=== PATIENT | male | born 1950 | race Caucasian/White ===

== ENCOUNTER → 2017-09-13 08:17 | Outpatient (CLI) | payer MEDICARE, OTHER, SELFPAY ==
[2017-09-13 09:33] LABS: Hemoglobin A1C% w Est Avg Glu 7.7 % (4.0-6.0)
[2017-09-13 09:58] LABS: Alanine Aminotransferase 53 IU/L (21-72); Albumin 4.1 g/dL (3.5-5.0); Albumin Globulin Ratio 1.5 (1.0-2.8); Alkaline Phosphatase 55 U/L (38-126); Aspartate Aminotransferase 29 IU/L (17-59); Bilirubin Total 0.7 mg/dL (0.2-1.3); Calcium 9.2 mg/dL (8.4-10.2); Estimated Glomerular Filt Rate > 60.0 mL/min (>60); Globulin 2.8 g/dL (1.7-4.1); Glucose 170 mg/dL (80-110); HEMOLYSIS < 15 (0-50); Potassium 4.6 mmol/L (3.4-5.1); Sodium 144 mmol/L (137-145); Total Protein 6.9 g/dL (6.3-8.2)
[2017-09-13 11:32] LABS: Creatinine Urine Random 233.4 mg/dL
[2017-09-13 11:36] LABS: Microalbumi Creatinin Ratio Ur 27.4 ug/mg CR (<30); Microalbumin Urine Random 6.4 mg/dL (0-1.6)
== END ==
PROVIDERS: Family Provider Family Medicine; PCP Family Medicine; Visit Provider Family Medicine
DX: E87.5 Hyperkalemia (principal)
CPT/HCPCS: 36415; 80053; 82043; 82570; 83036

== ENCOUNTER → 2017-11-08 12:10 | Outpatient (CLI) | payer MEDICARE, OTHER, SELFPAY ==
[2017-11-08 13:30] LABS: Prostate Specific Antigen < 0.064 ng/mL (0.10-4.00)
== END ==
PROVIDERS: Family Provider Family Medicine; PCP Family Medicine; Visit Provider Radiology Radiation Oncology
DX: C61 Malignant neoplasm of prostate (principal)
CPT/HCPCS: 36415; 84153

== ENCOUNTER → 2017-12-25 09:38 | Outpatient (CLI) | payer MEDICARE, OTHER, SELFPAY ==
[2017-12-25 10:59] LABS: Alanine Aminotransferase 39 IU/L (21-72); Albumin Globulin Ratio 1.7 (1.0-2.8); Alkaline Phosphatase 51 U/L (38-126); Aspartate Aminotransferase 21 IU/L (17-59); BUN Creatinine Ratio 18.2 (6-22); Bilirubin Total 0.5 mg/dL (0.2-1.3); Blood Urea Nitrogen 20 mg/dL (9-20); Calcium 9.6 mg/dL (8.4-10.2); Carbon Dioxide 28 mmol/L (22-32); Chloride 103 mmol/L (98-107); Estimated Glomerular Filt Rate > 60.0 mL/min (>60); Globulin 2.4 g/dL (1.7-4.1); Glucose 228 mg/dL (80-110); HEMOLYSIS < 15 (0-50); Potassium 4.9 mmol/L (3.4-5.1); Sodium 141 mmol/L (137-145); Total Protein 6.4 g/dL (6.3-8.2)
[2017-12-25 11:03] LABS: Hemoglobin A1C% w Est Avg Glu 7.3 % (4.0-6.0)
[2017-12-25 11:32] LABS: Creatinine Urine Random 193.1 mg/dL
[2017-12-25 11:36] LABS: Microalbumi Creatinin Ratio Ur 20.1 ug/mg CR (<30); Microalbumin Urine Random 3.9 mg/dL (0-1.6)
== END ==
PROVIDERS: Family Provider Family Medicine; PCP Family Medicine; Visit Provider Family Medicine
DX: E11.9 Type 2 diabetes mellitus without complications (principal)
CPT/HCPCS: 36415; 80053; 82043; 82570; 83036

== ENCOUNTER → 2017-12-27 11:17 | Outpatient (CLI) | payer MEDICARE, OTHER, SELFPAY | PROVIDERS: Family Provider Family Medicine; PCP Family Medicine; Visit Provider Urology | DX: C61 Malignant neoplasm of prostate (principal) | CPT/HCPCS: 36415; 84402; 84403 ==

== ENCOUNTER 2018-03-20 07:52 | Day surgery (SDC) | payer MEDICARE, OTHER, SELFPAY ==
--- NOTE | 2018-03-20 | PATH_ITS ---
[facility] Accession Number: [id number] . 01 Material submitted: . PART A: COLON POLYPS AT 15CM X2 PART B: CECAL POLYPS X3 . 02 Diagnosis: A. Colon Polyps At 15 CM: Hyperplastic polyp x2. . B. Cecal Polyps: Tubular adenoma x2. Colonic mucosa with no diagnostic abnormality, consistent with polypoid redundancy x1. BFI/03/23/2018 . 02 Electronically signed: . Xiang Cao MD, PhD, Pathologist NPI- [id number] . 01 Gross description: . (A) Received in formalin, labeled colon polyps X2 @15 cm, are two fragments of mg-daigle tissue (0.5 x 0.1 x 0.1 cm and 0.2 x 0.2 x 0.1 cm). Filtered and entirely submitted in cassette A1. (B) Received in formalin, labeled cecal polyps x2, are three daigle polyps (0.9 x 0.4 x 0.3 cm in aggregate). The largest polyp resection margin is inked black. The largest polyp is bisected and entirely submitted in cassette B1 and the two smaller ones are submitted intact in cassette B2. Note: The number of polyps agree with the number of polyps listed on the requisition. ([id number]) /[facility] . 02 Pathologist provided ICD-10: D12.0 . 02 CPT . 148818, 153024 Specimen Comment: A duplicate report has been generated due to demographic updates. Performed at: 01 [facility] [address] [id number] MD Toi Alexander MD Phone: [phone] Performed at: 02 [facility] [place] [address] [place], [place] [id number] MD Maia Rawls MD Phone: [phone]
[2018-03-20 08:23] VITALS: BP 152/88; PULSE 78; RESP 15; TEMP 36.9; O2SAT 93; BMI 33.0
[2018-03-20] MEDS: SODIUM CHLORIDE 0.9% 1,000 ML 200 ML IV (08:37)
--- NOTE | 2018-03-20 09:15 | PM.HP.1 ---
History of Present Illness Date Patient Seen: 03/20/18 Time Patient Seen: 09:15 Chief complaint: colonoscopy 21305 Narrative: Patient is a gentleman whose last colonoscopy was 16 years ago. he is here for screening examination. Patient History Medical History Chronic back pain (Chronic) Elevated cholesterol (Chronic) Essential hypertension with goal blood pressure less than 130/85 (Chronic) Surgical History H/O partial nephrectomy (Chronic) H/O radical prostatectomy (Chronic) Family & Social History Social History: household members spouse Meds Home Medications Medication Instructions Recorded Confirmed Type Isosobride 30 mg DAILY 03/20/18 03/20/18 History Meformin 500 mg DAILY 03/20/18 History Paxil 10 mg PRN 03/20/18 History amlodipine 10 mg DAILY 03/20/18 03/20/18 History atorvastatin 40 mg DAILY 03/20/18 03/20/18 History gabapentin 300 mg DAILY 03/20/18 03/20/18 History hydrocodone-acetaminophen 10 mg PRN 03/20/18 History metoprolol tartrate 25 mg DAILY 03/20/18 03/20/18 History omeprazole 20 mg PRN 03/20/18 History tamsulosin 0.4 mg DAILY 03/20/18 03/20/18 History tizanidine 4 mg PRN 03/20/18 History Allergies Allergy/AdvReac Type Severity Reaction Status Date / Time No Known Drug Allergies Allergy Verified 03/19/18 13:23 Review of Systems Review of Systems Has intermittent chest pain. Has had extensive cardiac workup negative for coronary disease but takes long-acting nitrates which has relieved the pain. He has spontaneous urinary incontinence since his prostatectomy. History kidney stones. All systems reviewed & are unremarkable except as noted in HPI and below Exam Vital Signs (past 8 hours): - 03/20/18 08:23 Temperature 98.4 F Pulse Rate 78 Respiratory Rate 15 Blood Pressure 152/88 H Pulse Oximetry 93 Oxygen Delivery Method Room Air Const Other: Operative no apparent distress. Lungs are clear to auscultation without rales or rhonchi. Heart regular rate and rhythm without murmur gallop. Abdomen is soft nontender protuberant without mass. Alert and oriented x3. Assessment & Plan Plan: Assessment/Plan Narrative: I have discussed the procedure and the rationale with the patient including risks of bleeding, perforation which would necessitate a major operation, failure to find remove all lesions and the potential to tattoo. They appeared to understand and wished to proceed.
--- NOTE | 2018-03-20 09:21 | PM.PREOP ---
Pre-operative Note Interval Note Pre-op Check: Yes History & Physical exam performed today by Physician Changes: No ASA Class (for procedural sedation): III
[2018-03-20] MEDS: MIDAZOLAM 5 MG/5 ML VIAL IV (09:44)
[2018-03-20] MEDS: fentaNYL 250 MCG/5 ML INJ IV (09:45)
[2018-03-20 09:55] VITALS: BP 140/82; PULSE 74; RESP 10; TEMP 36.6; O2SAT 94
[2018-03-20 10:02] VITALS: BP 99/64; PULSE 81; RESP 19; O2SAT 94
--- NOTE | 2018-03-20 10:03 | SUR.PHASEI ---
stable pacu stay.
[2018-03-20 10:06] VITALS: BP 113/76; PULSE 78; RESP 15; TEMP 36.5; O2SAT 95
--- NOTE | 2018-03-20 10:06 | P.OP.ENDO_ITS ---
Operative Date/Time/Diagnoses Date of procedure: 03/20/18 Time of procedure: 09:51 Pre-op diagnosis: Screening exam. Last exam 16 years ago. Post-op diagnosis: same (Five polyps removed. Internal hemorrhoids found) Procedure & Clinicians Study performed: Colonoscopy with hot snare polypectomy, cold snare polypectomy , and cold biopsy Same procedure as scheduled: Yes Indications: Screening Surgeon: Sree Hernandez Procedure Notes SCOAP/Timeout: Perform Procedure in detail: The patient was placed in the left lateral decubitus position and underwent IV sedation directed by the surgeon consisting of fentanyl and Versed. Digital exam was remarkable for surgically absent prostate. The scope was inserted into the rectum where I encountered 2 small polyps at 15 cm from the anal verge. These were biopsied and completely removed. The scope was then advanced through the rectum into the sigmoid, descending, transverse, and ascending colon. A stiffener was inserted I reach the cecum.. The cecum was reached identified by the ileocecal valve and the appendiceal opening. There were 3 polyps in the cecum. One was removed with a hot snare. One was removed by slicing through it with a cold snare. The base of these 2 lesions were cauterized. The 3rd lesion was a tiny polyp which was biopsied to complete removal. The scope was gradually brought out. No other Polyps were found. The scope ultimately was retroflexed in the rectum. The appearance was[notable for internal hemorrhoids without ulceration.]. The scope was removed and the patient tolerated the procedure well Scope withdrawal time: Just over 7 min Sedation minutes: 29 Findings: internal hemorrhoids and polyp (Five small polyps removed) Specimen(s): other (Polyps) Complications: none Recommendations: Colonscopy in 5 years Follow up: as needed Disposition: PACU
[2018-03-20 10:19] VITALS: BP 102/67; PULSE 77; RESP 15; TEMP 36.8; O2SAT 95
[2018-03-20 10:30] VITALS: BP 112/64; PULSE 73; RESP 15; TEMP 36.5; O2SAT 95
== END 2018-03-20 10:34 | disposition home or self-care (01) ==
PROVIDERS: Family Provider Family Medicine; PCP Family Medicine; Visit Provider Specialist
PROC: 0DJD8ZZ Inspection of Lower Intestinal Tract, Via Natural or Artificial Opening Endoscopic (ICD-10-PCS; CPT 45378; principal; 2018-03-20 08:45)
DX: Z12.11 Encounter for screening for malignant neoplasm of colon (principal); K64.8 Other hemorrhoids; I10 Essential (primary) hypertension; E78.5 Hyperlipidemia, unspecified; M54.9 Dorsalgia, unspecified; D12.0 Benign neoplasm of cecum
CPT/HCPCS: 45385; 45380; 88305; 99152; 99153; J2250; J3010

== ENCOUNTER → 2018-05-16 11:27 | Outpatient (CLI) | payer MEDICARE, OTHER, SELFPAY ==
[2018-05-16 12:44] LABS: Prostate Specific Antigen 0.163 ng/mL (0.10-4.00)
[2018-05-16 13:48] LABS: Testosterone 80.5 ng/dL (71.8-623)
== END ==
PROVIDERS: Family Provider Family Medicine; PCP Family Medicine; Visit Provider Radiology Radiation Oncology
DX: C61 Malignant neoplasm of prostate (principal)
CPT/HCPCS: 36415; 84153; 84403

== ENCOUNTER → 2018-06-01 07:10 | Outpatient (CLI) | payer MEDICARE, OTHER, SELFPAY ==
[2018-06-01 09:16] LABS: Hematocrit 53.4 % (41-53); Hemoglobin 17.8 g/dL (13.5-17.5); Mean Corpuscular HGB Conc 33.3 % (30-36); Mean Corpuscular Hemoglobin 30.2 PG (26-34); Mean Corpuscular Volume 90.6 fL (80-100); Platelet Count 141 X10^3/uL (150-400); Red Cell Distribution Width 13.8 % (11.6-14.8)
[2018-06-01 09:48] LABS: Alanine Aminotransferase 48 IU/L (21-72); Albumin 4.2 g/dL (3.5-5.0); Albumin Globulin Ratio 1.6 (1.0-2.8); Alkaline Phosphatase 51 U/L (38-126); Aspartate Aminotransferase 26 IU/L (17-59); BUN Creatinine Ratio 16.4 (6-22); Bilirubin Total 0.7 mg/dL (0.2-1.3); Blood Urea Nitrogen 18 mg/dL (9-20); Carbon Dioxide 25 mmol/L (22-32); Chloride 105 mmol/L (98-107); Cholesterol 97 mg/dL (140-199); Estimated Glomerular Filt Rate > 60.0 mL/min (>60); Globulin 2.7 g/dL (1.7-4.1); Glucose 165 mg/dL (80-110); HDL Cholesterol 21 mg/dL (40-60); HEMOLYSIS < 15 (0-50); LDL Cholesterol Calculated 46 mg/dL (<100); Potassium 4.2 mmol/L (3.4-5.1); Sodium 139 mmol/L (137-145); Total Protein 6.9 g/dL (6.3-8.2); Triglycerides 150 mg/dL (35-150)
[2018-06-01 10:10] LABS: Neutrophils Absolute Manual 4320 /uL (3000-5900); RBC Morphology Normal Morphology; Total Cells Counted 100
[2018-06-01 10:11] LABS: Add Manual Diff / Slide Review YES
[2018-06-01 10:19] LABS: TSH w/ Reflex to FT4 0.59 uIU/mL (0.47-4.68)
[2018-06-01 11:01] LABS: Hemoglobin A1C% w Est Avg Glu 9.3 % (4.0-6.0)
== END ==
PROVIDERS: Family Provider Family Medicine; PCP Family Medicine; Visit Provider Family Medicine
DX: I25.10 Atherosclerotic heart disease of native coronary artery without angina pectoris (principal); E11.9 Type 2 diabetes mellitus without complications; I10 Essential (primary) hypertension; C61 Malignant neoplasm of prostate
CPT/HCPCS: 36415; 80053; 80061; 83036; 84443; 85025

== ENCOUNTER → 2018-06-04 09:47 | Outpatient (CLI) | payer MEDICARE, OTHER, SELFPAY ==
[2018-06-04 10:36] LABS: Creatinine Urine Random 216.3 mg/dL
[2018-06-04 10:41] LABS: Microalbumi Creatinin Ratio Ur 44.3 ug/mg CR (<30); Microalbumin Urine Random 9.6 mg/dL (0-1.6)
== END ==
PROVIDERS: Family Provider Family Medicine; PCP Family Medicine; Visit Provider Family Medicine
DX: I25.10 Atherosclerotic heart disease of native coronary artery without angina pectoris (principal); E11.9 Type 2 diabetes mellitus without complications
CPT/HCPCS: 82043; 82570

== ENCOUNTER → 2018-08-31 07:04 | Outpatient (CLI) | payer MEDICARE, OTHER, SELFPAY ==
[2018-08-31 08:05] LABS: Hematocrit 45.5 % (41-53); Hemoglobin 15.8 g/dL (13.5-17.5)
[2018-08-31 08:28] LABS: Cholesterol 128 mg/dL (140-199); HDL Cholesterol 27 mg/dL (40-60); LDL Cholesterol Calculated 66 mg/dL (<100); Triglycerides 173 mg/dL (35-150)
== END ==
PROVIDERS: PCP Family Medicine; Visit Provider Urology
DX: C61 Malignant neoplasm of prostate (principal); E29.1 Testicular hypofunction; E66.9 Obesity, unspecified; Z68.33 Body mass index [BMI] 33.0-33.9, adult
CPT/HCPCS: 36415; 80061; 84153; 85014; 85018

== ENCOUNTER → 2018-11-08 07:00 | Outpatient (CLI) | payer MEDICARE, OTHER, SELFPAY ==
[2018-11-08 08:19] LABS: Prostate Specific Antigen 0.165 ng/mL (0.10-4.00)
== END ==
PROVIDERS: PCP Family Medicine; Visit Provider Radiology Radiation Oncology
DX: C61 Malignant neoplasm of prostate (principal)
CPT/HCPCS: 36415; 84153

== ENCOUNTER → 2019-02-15 11:56 | Outpatient (CLI) | payer MEDICARE, OTHER, SELFPAY ==
[2019-02-15 13:37] LABS: Prostate Specific Antigen 0.136 ng/mL (0.10-4.00)
== END ==
PROVIDERS: Family Provider Family Medicine; PCP Family Medicine; Visit Provider Radiology Radiation Oncology
DX: L40.50 Arthropathic psoriasis, unspecified (principal); C61 Malignant neoplasm of prostate
CPT/HCPCS: 36415; 84153

== ENCOUNTER → 2019-05-02 10:12 | Outpatient (CLI) | payer MEDICARE, OTHER, SELFPAY ==
[2019-05-02 11:58] LABS: Prostate Specific Antigen 0.123 ng/mL (0.10-4.00)
== END ==
PROVIDERS: PCP Family Medicine; Visit Provider Urology
DX: Z85.46 Personal history of malignant neoplasm of prostate (principal)
CPT/HCPCS: 36415; 84153

== ENCOUNTER → 2019-08-15 08:54 | Outpatient (CLI) | payer MEDICARE, OTHER, SELFPAY ==
[2019-08-15 10:14] LABS: Add Manual Diff / Slide Review NO; Basophils Absolute Auto 0 /uL (0-100); Basophils Percent Auto 0.5 % (0-2); Eosinophils Absolute Auto 100 /uL (0-450); Eosinophils Percent Auto 1.5 % (2-4); Hematocrit 46.5 % (41-53); Lymphocytes Absolute Auto 1500 /uL (1100-4500); Lymphocytes Percent Auto 29.5 % (25-40); Mean Corpuscular HGB Conc 34.4 % (30-36); Mean Corpuscular Hemoglobin 31.4 PG (26-34); Mean Corpuscular Volume 91.4 fL (80-100); Monocytes Absolute Auto 300 /uL (0-900); Monocytes Percent Auto 6.8 % (3-14); Neutrophils Absolute Auto 3100 /uL (1500-7000); Neutrophils Percent Auto 61.7 % (50-75); Platelet Count 139 X10^3/uL (150-400); Red Blood Cell Count 5.09 X10^6/uL (4.5-5.9); Red Cell Distribution Width 12.8 % (11.6-14.8); White Blood Cell Count 4.9 X10^3/uL (4.5-11.0)
[2019-08-15 10:32] LABS: Alanine Aminotransferase 42 IU/L (<50); Albumin 4.3 g/dL (3.5-5.0); Albumin Globulin Ratio 1.4 (1.0-2.8); Alkaline Phosphatase 71 U/L (38-126); Aspartate Aminotransferase 35 IU/L (17-59); BUN Creatinine Ratio 11.2 (6-22); Bilirubin Total 0.6 mg/dL (0.2-1.3); Blood Urea Nitrogen 11 mg/dL (9-20); Calcium 9.6 mg/dL (8.4-10.2); Carbon Dioxide 25 mmol/L (22-32); Chloride 104 mmol/L (98-107); Cholesterol 159 mg/dL (140-199); Estimated Glomerular Filt Rate > 60.0 mL/min (>60); Globulin 3.1 g/dL (1.7-4.1); Glucose 269 mg/dL (80-110); HDL Cholesterol 27 mg/dL (40-60); HEMOLYSIS 30 (0-50); Potassium 4.6 mmol/L (3.4-5.1); Sodium 138 mmol/L (137-145); Total Protein 7.4 g/dL (6.3-8.2); Triglycerides 517 mg/dL (35-150)
[2019-08-15 11:04] LABS: Prostate Specific Antigen 0.099 ng/mL (0.10-4.00)
[2019-08-15 11:54] LABS: Hemoglobin A1C% w Est Avg Glu 12.5 % (4.0-6.0)
== END ==
PROVIDERS: Radiology Radiation Oncology; PCP Family Medicine; Referring Provider Family Medicine; Visit Provider Family Medicine
DX: R79.89 Other specified abnormal findings of blood chemistry (principal); E11.9 Type 2 diabetes mellitus without complications; E78.5 Hyperlipidemia, unspecified; C61 Malignant neoplasm of prostate
CPT/HCPCS: 36415; 80053; 80061; 83036; 84153; 85025

== ENCOUNTER → 2019-10-30 09:17 | Outpatient (CLI) | payer MEDICARE, OTHER, SELFPAY ==
[2019-10-30 11:38] LABS: Alanine Aminotransferase 28 IU/L (<50); Albumin 4.2 g/dL (3.5-5.0); Albumin Globulin Ratio 1.6 (1.0-2.8); Alkaline Phosphatase 43 U/L (38-126); Aspartate Aminotransferase 25 IU/L (17-59); Bilirubin Total 0.5 mg/dL (0.2-1.3); Blood Urea Nitrogen 26 mg/dL (9-20); Calcium 9.8 mg/dL (8.4-10.2); Carbon Dioxide 25 mmol/L (22-32); Chloride 106 mmol/L (98-107); Cholesterol 123 mg/dL (140-199); Estimated Glomerular Filt Rate 58.1 mL/min (>60); Globulin 2.6 g/dL (1.7-4.1); Glucose 177 mg/dL (80-110); HDL Cholesterol 21 mg/dL (40-60); HEMOLYSIS < 15 (0-50); LDL Cholesterol Calculated 61 mg/dL (<100); Potassium 4.6 mmol/L (3.4-5.1); Sodium 139 mmol/L (137-145); Total Protein 6.8 g/dL (6.3-8.2); Triglycerides 205 mg/dL (35-150)
[2019-10-30 11:46] LABS: Microalbumin Urine Random 1.5 mg/dL (0-1.6)
[2019-10-30 12:11] LABS: TSH w/ Reflex to FT4 1.08 uIU/mL (0.47-4.68)
[2019-10-30 19:37] LABS: Creatinine Urine Random 232.6 mg/dL; Microalbumi Creatinin Ratio Ur 6.4 ug/mg CR (<30)
[2019-10-30 21:52] LABS: Add Manual Diff / Slide Review NO; Basophils Absolute Auto 0 /uL (0-100); Basophils Percent Auto 0.7 % (0-2); Eosinophils Absolute Auto 100 /uL (0-450); Eosinophils Percent Auto 1.9 % (2-4); Hematocrit 42.9 % (41-53); Hemoglobin 14.8 g/dL (13.5-17.5); Lymphocytes Absolute Auto 1600 /uL (1100-4500); Lymphocytes Percent Auto 29.3 % (25-40); Mean Corpuscular HGB Conc 34.5 % (30-36); Mean Corpuscular Hemoglobin 31.7 PG (26-34); Mean Corpuscular Volume 91.9 fL (80-100); Monocytes Absolute Auto 300 /uL (0-900); Monocytes Percent Auto 5.6 % (3-14); Neutrophils Absolute Auto 3500 /uL (1500-7000); Neutrophils Percent Auto 62.5 % (50-75); Platelet Count 155 X10^3/uL (150-400); Red Blood Cell Count 4.67 X10^6/uL (4.5-5.9); Red Cell Distribution Width 13.7 % (11.6-14.8); White Blood Cell Count 5.6 X10^3/uL (4.5-11.0)
== END ==
PROVIDERS: PCP Family Medicine; Referring Provider Family Medicine; Visit Provider Family Medicine
DX: D12.6 Benign neoplasm of colon, unspecified (principal)
CPT/HCPCS: 36415; 80053; 80061; 82043; 82570; 83036; 84134; 84443; 85025

== ENCOUNTER → 2020-01-04 08:10 | Outpatient (CLI) | payer MEDICARE, OTHER, SELFPAY ==
[2020-01-04 10:09] LABS: Basophils Percent Auto 0.4 % (0-2); Eosinophils Percent Auto 1.9 % (2-4); Hematocrit 42.8 % (41-53); Hemoglobin 14.6 g/dL (13.5-17.5); Lymphocytes Percent Auto 30.5 % (25-40); Mean Corpuscular HGB Conc 34.2 % (30-36); Mean Corpuscular Hemoglobin 31.4 PG (26-34); Mean Corpuscular Volume 91.9 fL (80-100); Monocytes Percent Auto 9.1 % (3-14); Neutrophils Percent Auto 58.1 % (50-75); Platelet Count 157 X10^3/uL (150-400); Red Blood Cell Count 4.65 X10^6/uL (4.5-5.9); Red Cell Distribution Width 13.3 % (11.6-14.8); White Blood Cell Count 5.7 X10^3/uL (4.5-11.0)
[2020-01-04 10:10] LABS: Add Manual Diff / Slide Review NO; Basophils Absolute Auto 0 /uL (0-100); Eosinophils Absolute Auto 100 /uL (0-450); Lymphocytes Absolute Auto 1700 /uL (1100-4500); Monocytes Absolute Auto 500 /uL (0-900); Neutrophils Absolute Auto 3300 /uL (1500-7000)
[2020-01-04 10:25] LABS: Hemoglobin A1C% w Est Avg Glu 6.8 % (4.0-6.0)
[2020-01-04 10:26] LABS: Alanine Aminotransferase 31 IU/L (<50); Albumin 4.4 g/dL (3.5-5.0); Albumin Globulin Ratio 1.6 (1.0-2.8); Alkaline Phosphatase 48 U/L (38-126); Aspartate Aminotransferase 26 IU/L (17-59); BUN Creatinine Ratio 23.9 (6-22); Bilirubin Total 0.5 mg/dL (0.2-1.3); Blood Urea Nitrogen 27 mg/dL (9-20); Calcium 9.6 mg/dL (8.4-10.2); Carbon Dioxide 27 mmol/L (22-32); Chloride 107 mmol/L (98-107); Cholesterol 127 mg/dL (140-199); Estimated Glomerular Filt Rate > 60.0 mL/min (>60); Globulin 2.7 g/dL (1.7-4.1); Glucose 116 mg/dL (80-110); HDL Cholesterol 25 mg/dL (40-60); HEMOLYSIS < 15 (0-50); LDL Cholesterol Calculated 63 mg/dL (<100); Potassium 5.1 mmol/L (3.4-5.1); Sodium 140 mmol/L (137-145); Total Protein 7.1 g/dL (6.3-8.2); Triglycerides 196 mg/dL (35-150)
[2020-01-04 10:34] LABS: Prealbumin 34.2 mg/dL (17.6-36.0)
[2020-01-04 10:53] LABS: Creatinine Urine Random 344.6 mg/dL
[2020-01-04 11:04] LABS: TSH w/ Reflex to FT4 0.96 uIU/mL (0.47-4.68)
[2020-01-04 11:05] LABS: Prostate Specific Antigen 0.158 ng/mL (0.10-4.00)
[2020-01-04 22:11] LABS: Microalbumi Creatinin Ratio Ur 15.9 ug/mg CR (<30); Microalbumin Urine Random 5.5 mg/dL (0-1.6)
== END ==
PROVIDERS: Radiology Radiation Oncology; PCP Family Medicine Sports Medicine; Referring Provider Family Medicine; Visit Provider Family Medicine
DX: D12.6 Benign neoplasm of colon, unspecified (principal); C61 Malignant neoplasm of prostate
CPT/HCPCS: 36415; 80053; 80061; 82043; 82570; 83036; 84134; 84153; 84443; 85025

== ENCOUNTER → 2020-05-05 11:05 | Outpatient (CLI) | payer MEDICARE, SELFPAY ==
[2020-05-05 12:36] LABS: Hemoglobin A1C% w Est Avg Glu 7.2 % (4.0-6.0)
[2020-05-05 12:48] LABS: Alanine Aminotransferase 30 IU/L (<50); Albumin 4.1 g/dL (3.5-5.0); Albumin Globulin Ratio 1.5 (1.0-2.8); Alkaline Phosphatase 42 U/L (38-126); Aspartate Aminotransferase 21 IU/L (17-59); BUN Creatinine Ratio 18.9 (6-22); Bilirubin Total 0.4 mg/dL (0.2-1.3); Blood Urea Nitrogen 21 mg/dL (9-20); Calcium 9.5 mg/dL (8.4-10.2); Carbon Dioxide 28 mmol/L (22-32); Chloride 108 mmol/L (98-107); Estimated Glomerular Filt Rate > 60.0 mL/min (>60); Globulin 2.7 g/dL (1.7-4.1); Glucose 217 mg/dL (80-110); HEMOLYSIS 15 (0-50); Potassium 4.6 mmol/L (3.4-5.1); Sodium 141 mmol/L (137-145); Total Protein 6.8 g/dL (6.3-8.2)
[2020-05-05 15:10] LABS: Creatinine Urine Random 247.3 mg/dL
[2020-05-05 15:15] LABS: Microalbumi Creatinin Ratio Ur 16.1 ug/mg CR (<30)
== END ==
PROVIDERS: PCP Family Medicine Sports Medicine; Referring Provider Nurse Practitioner Family; Visit Provider Nurse Practitioner Family
DX: E11.65 Type 2 diabetes mellitus with hyperglycemia (principal); Z79.4 Long term (current) use of insulin
CPT/HCPCS: 36415; 80053; 82043; 82570; 83036

== ENCOUNTER → 2020-05-06 07:05 | Outpatient (CLI) | payer MEDICARE, SELFPAY ==
[2020-05-06 08:42] LABS: Cholesterol 128 mg/dL (140-199); HDL Cholesterol 23 mg/dL (40-60); LDL Cholesterol Calculated 37 mg/dL (<100); Triglycerides 341 mg/dL (35-150)
== END ==
PROVIDERS: PCP Family Medicine Sports Medicine; Referring Provider Nurse Practitioner Family; Visit Provider Nurse Practitioner Family
DX: E11.65 Type 2 diabetes mellitus with hyperglycemia (principal); Z79.4 Long term (current) use of insulin
CPT/HCPCS: 36415; 80061

== ENCOUNTER → 2020-06-22 09:14 | Outpatient (CLI) | payer MEDICARE, SELFPAY ==
[2020-06-22 11:07] LABS: Hemoglobin A1C% w Est Avg Glu 7.3 % (4.0-6.0)
== END ==
PROVIDERS: PCP Family Medicine Sports Medicine; Referring Provider Family Medicine Sports Medicine; Visit Provider Nurse Practitioner Family
DX: E11.65 Type 2 diabetes mellitus with hyperglycemia (principal); Z79.4 Long term (current) use of insulin
CPT/HCPCS: 36415; 83036

== ENCOUNTER → 2020-07-16 08:27 | Outpatient (CLI) | payer MEDICARE, SELFPAY ==
[2020-07-16] MEDS: COVID-19 VACC #1, MRNA(MOD) 100 MCG/0.5 ML VIAL IM (08:35)
== END ==
PROVIDERS: PCP Family Medicine Sports Medicine; Visit Provider Internal Medicine
DX: Z23 Encounter for immunization (principal)
CPT/HCPCS: 0011A; 91301

== ENCOUNTER → 2020-08-13 08:29 | Outpatient (CLI) | payer MEDICARE, SELFPAY ==
[2020-08-13] MEDS: COVID-19 VACC #2, MRNA(MOD) 100 MCG/0.5 ML VIAL IM (08:33)
== END ==
PROVIDERS: PCP Family Medicine Sports Medicine; Visit Provider Internal Medicine
DX: Z23 Encounter for immunization (principal)
CPT/HCPCS: 0012A; 91301

== ENCOUNTER → 2020-12-02 07:24 | Outpatient (CLI) | payer MEDICARE, SELFPAY ==
[2020-12-02 09:00] LABS: Cholesterol 143 mg/dL (140-199); HDL Cholesterol 30 mg/dL (40-60); LDL Cholesterol Calculated 76 mg/dL (<100); Triglycerides 185 mg/dL (35-150)
== END ==
PROVIDERS: PCP Family Medicine Sports Medicine; Referring Provider Nurse Practitioner Family; Visit Provider Nurse Practitioner Family
DX: E11.65 Type 2 diabetes mellitus with hyperglycemia (principal); Z79.4 Long term (current) use of insulin
CPT/HCPCS: 36415; 80061

== ENCOUNTER → 2020-12-17 06:54 | Outpatient (CLI) | payer MEDICARE, SELFPAY ==
[2020-12-17 08:22] LABS: Hemoglobin A1C% w Est Avg Glu 8.9 % (4.0-6.0)
[2020-12-17 08:45] LABS: Cholesterol 125 mg/dL (140-199); HDL Cholesterol 26 mg/dL (40-60); LDL Cholesterol Calculated 43 mg/dL (<100); Triglycerides 282 mg/dL (35-150)
[2020-12-17 09:14] LABS: Prostate Specific Antigen 0.255 ng/mL (0.10-4.00)
[2020-12-17 15:03] LABS: Creatinine Urine Random 77.6 mg/dL
[2020-12-17 15:11] LABS: Microalbumi Creatinin Ratio Ur 16.7 ug/mg CR (<30); Microalbumin Urine Random 1.3 mg/dL (0-1.6)
[2020-12-18 02:28] LABS: Alanine Aminotransferase 39 IU/L (<50); Albumin 3.8 g/dL (3.5-5.0); Albumin Globulin Ratio 1.6 (1.0-2.8); Alkaline Phosphatase 63 U/L (38-126); Aspartate Aminotransferase 26 IU/L (17-59); BUN Creatinine Ratio 17.1 (6-22); Bilirubin Total 0.4 mg/dL (0.2-1.3); Blood Urea Nitrogen 18 mg/dL (9-20); Calcium 9.5 mg/dL (8.4-10.2); Carbon Dioxide 23 mmol/L (22-32); Chloride 108 mmol/L (98-107); Estimated Glomerular Filt Rate > 60.0 mL/min (>60); Globulin 2.4 g/dL (1.7-4.1); Glucose 250 mg/dL (80-110); HEMOLYSIS 15 (0-50); Potassium 4.4 mmol/L (3.4-5.1); Sodium 138 mmol/L (137-145); Total Protein 6.2 g/dL (6.3-8.2)
[2020-12-18 02:30] LABS: Add Manual Diff / Slide Review NO; Basophils Absolute Auto 0 /uL (0-100); Basophils Percent Auto 0.6 % (0-2); Eosinophils Absolute Auto 100 /uL (0-450); Hematocrit 48.7 % (41-53); Hemoglobin 16.3 g/dL (13.5-17.5); Lymphocytes Absolute Auto 1800 /uL (1100-4500); Lymphocytes Percent Auto 35.8 % (25-40); Mean Corpuscular HGB Conc 33.4 % (30-36); Mean Corpuscular Hemoglobin 31.1 PG (26-34); Mean Corpuscular Volume 92.9 fL (80-100); Monocytes Absolute Auto 400 /uL (0-900); Monocytes Percent Auto 8.1 % (3-14); Neutrophils Absolute Auto 2700 /uL (1500-7000); Neutrophils Percent Auto 53.5 % (50-75); Platelet Count 138 X10^3/uL (150-400); Red Blood Cell Count 5.24 X10^6/uL (4.5-5.9); Red Cell Distribution Width 14.1 % (11.6-14.8)
== END ==
PROVIDERS: PCP Family Medicine Sports Medicine; Referring Provider Family Medicine Sports Medicine; Visit Provider Family Medicine Sports Medicine
DX: C61 Malignant neoplasm of prostate (principal); E11.9 Type 2 diabetes mellitus without complications; E78.5 Hyperlipidemia, unspecified
CPT/HCPCS: 36415; 80053; 80061; 82043; 82570; 83036; 84153; 85025

== ENCOUNTER → 2021-03-02 08:14 | Outpatient (CLI) | payer MEDICARE, SELFPAY ==
--- NOTE | 2021-03-02 | DI.US.S_ITS ---
PROCEDURE: US RETRO PERITONEAL LIMITED INDICATIONS: AAA TECHNIQUE: Real time scanning was performed of the aorta and iliac arteries, with image documentation. COMPARISON: [facility], CT, ABDOMEN/PELVIS WITH CONTRAST, 08/28/2017, 10:04. FINDINGS: Aorta: Proximal aortic not well seen. Mid-aorta measures 1.8 cm. Distal aortic diameter is 3.4 x 3.4 cm. Iliac arteries: Right common iliac artery measures 0.9 cm. Left common iliac artery measures 1.1 cm. IMPRESSION: No significant change in descending abdominal aortic aneurysm measuring up to 3.4 cm in maximal diameter. 3 year follow-up ultrasound recommended. Dictated by: Franc CLARK Interpreted: Juan Luis Munoz MD on 03/02/2021 at 13:03 Transcribed by: JAZ on 03/02/2021 at 13:05 Approved by: Juan Luis Munoz M.D. on 03/02/2021 at 18:05
--- NOTE | 2021-03-02 | DI.ECHO.S_ITS ---
[facility] +---------+ : : [address] : : : : [id number] : : : : Phone: [phone]+ Echocardiogram Report + + :Name: EVELYN CERVANTES Study Date: 03/02/2021 Height: 70 in : :[facility] ReadingLocation: Weight: 214 lb : : Gender: Male BSA: 2.1 m2 : :: 1950 Age: 71 yrs BP: 139/94 mmHg: :Reason For Study: MURMUR : :Ordering Physician: TIP, : :SUZIE Mcpherson Performed By: Telma Ernst : :Referring: SUZIE DRAPER : + + Interpretation Summary There is borderline concentric left ventricular hypertrophy. The ejection fraction is estimated to be 55-60%. Normal diastolic function. The right ventricle is normal in size and function. There is trace aortic regurgitation. Pulmonary artery pressures cannot be estimated. Procedure: A two-dimensional transthoracic echocardiogram with color flow and Doppler was performed. The study quality was technically adequate. There is no prior echocardiogram noted for this patient. The patient was in sinus rhythm with heart rates between 59-70 bpm during the exam. Left Ventricle: The left ventricle is normal in size. There is borderline concentric left ventricular hypertrophy. The ejection fraction is estimated to be 55-60%. Diastolic parameters suggest probable normal left ventricular diastolic function and normal filling pressures. Right Ventricle: The right ventricle is normal in size and function. Atria: Both atria are normal in size. There is no Doppler evidence for an interatrial shunt. Mitral Valve: The mitral valve is normal in structure and function. There is trace mitral regurgitation. Aortic Valve: The aortic valve is trileaflet. The aortic valve opens well. There is no aortic valve stenosis. There is trace aortic regurgitation. Tricuspid Valve: The tricuspid valve is normal in structure and function. There is trace tricuspid regurgitation. Pulmonary artery pressures cannot be estimated because of the lack of a measurable TR jet velocity but the IVC suggests a CVP of around 3 mmHg. Pulmonic Valve: The pulmonic valve is not well seen, but is grossly normal. There is mild pulmonic regurgitation. Great Vessels: The aortic root is normal size. The ascending aorta is mild- moderately enlarged. The IVC is of normal diameter and collapses greater than 50% with a sniff. This suggests a low right atrial pressure of 3 mm Hg. Pericardium/ Pleura There is no pericardial effusion. There is no pleural effusion. MMode/2D Measurements & Calculations LVIDd: 4.7 cm LVOT diam: 2.3 cm LVIDs: 3.4 cm Ao root diam: 3.8 cm FS: 27.3 % asc Aorta Diam: 4.0 cm IVSd: 1.1 cm Ao Arch Diam (Prox Trans): 3.6 cm LVPWd: 1.1 cm LV [place]. diameter/BSA (cm/m^2): 2.2 LV sys. diameter/BSA (cm/m^2): 1.6 LA A2 area: 19.2 cm2 RA long axis: 5.4 cm LA A4 area: 17.7 cm2 RA area: 17.6 cm2 LA length (vol): 5.7 cm RA vol: 48.9 ml LA vol: 50.5 ml RA : 22.8 ml/m2 LA vol index: 23.5 ml/m2 IVC diam: 1.5 cm RVD1 (basal): 4.0 cm TAPSE: 1.8 cm Doppler Measurements & Calculations Ao V2 max: 105.6 cm/sec LVOT Max Hero: 79.6 cm/sec Ao V2 mean: 82.2 cm/sec LV V1 max P.5 mmHg Ao max P.5 mmHg LV V1 VTI: 16.9 cm Ao mean P.9 mmHg MAGALIE(I,D): 3.0 cm2 Ao V2 VTI: 23.2 cm MAGALIE(V,D): 3.1 cm2 sev ratio: 0.73 MAGALIE indexed to BSA (cm^2/m^2): 1.4 MV E max hero: 49.5 cm/sec PA V2 max: 84.2 cm/sec MV A max hero: 59.8 cm/sec PA V2 mean: 49.3 cm/sec MV E/A: 0.83 PA mean P.1 mmHg Med Peak E' Hero: 4.6 cm/sec PA pr(Accel): 20.8 mmHg E/E' med: 10.9 Lat Peak E' Hero: 6.6 cm/sec E/E' lat: 7.5 E/e' average: 9.2 MV dec time: 0.29 sec SV(LVOT): 69.1 ml Reading Physician:12:34 PM
== END ==
PROVIDERS: PCP Family Medicine Sports Medicine; Referring Provider Internal Medicine Cardiovascular Disease; Visit Provider Internal Medicine Cardiovascular Disease
DX: I35.9 Nonrheumatic aortic valve disorder, unspecified; I71.4 Abdominal aortic aneurysm, without rupture; I37.1 Nonrheumatic pulmonary valve insufficiency; I77.89 Other specified disorders of arteries and arterioles; R01.1 Cardiac murmur, unspecified
CPT/HCPCS: 76775; 93306

== ENCOUNTER → 2021-03-03 07:45 | Outpatient (CLI) | payer MEDICARE, SELFPAY ==
[2021-03-03 09:03] LABS: COVID19 -Nasal RAPID Negative (Negative)
--- NOTE | 2021-03-03 19:07 | DI.NM.S_ITS ---
DATE OF SERVICE: 03/03/2021 PROCEDURE PERFORMED: Exercise treadmill stress and rest myocardial perfusion imaging study with gating to assess ejection fraction and regional wall motion. ORDERING PROVIDER: Dr. Suzie Draper. INDICATIONS: The patient is a 71-year-old male with known CAD with recent fatigue and atrial arrhythmias. EXERCISE TREADMILL TESTING: The patient was able to exercise for a total of 7 minutes, 31 seconds on a standard Rodriguez protocol, suggesting good exercise capacity with an CHAZ of -5%. He had a normal heart rate and blood pressure response to exercise, achieving a maximum heart rate of 156 BPM (103% of his predicted maximum). He had no chest discomfort or other anginal symptoms. His resting ECG shows sinus rhythm with normal ST segments. There are no significant ST-segment shifts with exercise. He had occasional isolated PVCs but no complex ventricular ectopy or other arrhythmias. At 6 minutes 30 seconds of exercise, at a heart rate of 147 BPM, 23.8 millicuries of technetium-99m Myoview was injected and he was imaged 10 minutes later using a gated SPECT acquisition protocol. Earlier in the day while at rest, he was injected with 12.1 millicuries of technetium-99m Myoview and was imaged 20 minutes later, again using a gated SPECT acquisition protocol. FINDINGS: 1. Raw data: There appears to be fairly good myocardial tracer uptake. The lung/heart ratio is normal at 0.39 with a normal TID ratio of 0.88. 2. Quantitative gated SPECT: Left ventricular systolic function appears normal with a post-stress ejection fraction of 69% without any focal wall motion abnormality. Resting ejection fraction is estimated at 73% with a resting end-diastolic volume of 99 mL. 3. Myocardial perfusion imaging: Immediate post-stress supine images shows a fairly normal myocardial perfusion pattern with just a very mild defect in the inferior wall that completely resolves on the prone images, consistent with diaphragmatic attenuation artifact. The resting images show an identical perfusion pattern without any clear areas of improvement. IMPRESSION: 1. Normal myocardial perfusion study. 2. Mild, fixed inferior defect that completely resolves on prone imaging, consistent with diaphragmatic attenuation artifact. There is no evidence for any myocardial ischemia or previous myocardial infarction. 3. Normal left ventricular systolic function without any focal wall motion abnormality. 4. Good exercise capacity without angina or ECG evidence of ischemia. He had occasional PVCs, but no other arrhythmias. Twan Jay - Brittany/jose doc#: [id number]/job#: [id number] dd: 03/03/2021 16:46:00 dt: 03/03/2021 18:54:00 DICTATING MD/COPIES TO: Daniel Hawkins MD; Suzie Draper M.D. COPIES MNE: RADHA;
== END ==
PROVIDERS: PCP Family Medicine Sports Medicine; Referring Provider Internal Medicine Cardiovascular Disease; Visit Provider Internal Medicine Cardiovascular Disease
DX: I49.9 Cardiac arrhythmia, unspecified (principal); I25.10 Atherosclerotic heart disease of native coronary artery without angina pectoris; R53.83 Other fatigue; Z20.822 Contact with and (suspected) exposure to COVID-19
CPT/HCPCS: 78452; 87635; 93017; A9502

== ENCOUNTER → 2021-03-27 08:20 | Outpatient (CLI) | payer MEDICARE, SELFPAY ==
[2021-03-27 09:17] LABS: Add Manual Diff / Slide Review NO; Basophils Absolute Auto 0 /uL (0-100); Basophils Percent Auto 0.5 % (0-2); Eosinophils Absolute Auto 200 /uL (0-450); Eosinophils Percent Auto 2.6 % (2-4); Hematocrit 47.7 % (41-53); Hemoglobin 16.4 g/dL (13.5-17.5); Lymphocytes Absolute Auto 1800 /uL (1100-4500); Lymphocytes Percent Auto 28.3 % (25-40); Mean Corpuscular HGB Conc 34.4 % (30-36); Mean Corpuscular Hemoglobin 30.5 PG (26-34); Mean Corpuscular Volume 88.8 fL (80-100); Monocytes Absolute Auto 500 /uL (0-900); Monocytes Percent Auto 7.3 % (3-14); Neutrophils Absolute Auto 3800 /uL (1500-7000); Neutrophils Percent Auto 61.3 % (50-75); Platelet Count 160 X10^3/uL (150-400); Red Blood Cell Count 5.38 X10^6/uL (4.5-5.9); White Blood Cell Count 6.2 X10^3/uL (4.5-11.0)
[2021-03-27 09:26] LABS: Alanine Aminotransferase 44 IU/L (<50); Albumin 4.1 g/dL (3.5-5.0); Albumin Globulin Ratio 1.7 (1.0-2.8); Alkaline Phosphatase 57 U/L (38-126); Aspartate Aminotransferase 29 IU/L (17-59); BUN Creatinine Ratio 14.1 (6-22); Bilirubin Total 0.5 mg/dL (0.2-1.3); Blood Urea Nitrogen 13 mg/dL (9-20); Calcium 9.3 mg/dL (8.4-10.2); Carbon Dioxide 25 mmol/L (22-32); Chloride 104 mmol/L (98-107); Cholesterol 138 mg/dL (140-199); Estimated Glomerular Filt Rate > 60.0 mL/min (>60); Globulin 2.4 g/dL (1.7-4.1); Glucose 243 mg/dL (80-110); HDL Cholesterol 26 mg/dL (40-60); HEMOLYSIS < 15 (0-50); LDL Cholesterol Calculated 74 mg/dL (<100); Potassium 4.4 mmol/L (3.4-5.1); Sodium 137 mmol/L (137-145); Total Protein 6.5 g/dL (6.3-8.2); Triglycerides 192 mg/dL (35-150)
[2021-03-27 09:46] LABS: Hemoglobin A1C% w Est Avg Glu 10.7 % (4.0-6.0)
[2021-03-27 10:20] LABS: Thyroid Stimulating Hormone 1.23 uIU/mL (0.47-4.68)
== END ==
PROVIDERS: PCP Family Medicine Sports Medicine; Referring Provider Internal Medicine Cardiovascular Disease; Visit Provider Internal Medicine Cardiovascular Disease
DX: E78.5 Hyperlipidemia, unspecified (principal); E11.9 Type 2 diabetes mellitus without complications; I10 Essential (primary) hypertension; R53.83 Other fatigue
CPT/HCPCS: 36415; 80053; 80061; 83036; 84443; 85025

== ENCOUNTER → 2021-05-05 07:45 | Outpatient (CLI) | payer OTHER, MEDICARE, SELFPAY ==
[2021-05-05 09:25] LABS: Prostate Specific Antigen 0.453 ng/mL (0.10-4.00)
== END ==
PROVIDERS: PCP Family Medicine Sports Medicine; Referring Provider Radiology Radiation Oncology; Visit Provider Radiology Radiation Oncology
DX: C61 Malignant neoplasm of prostate (principal)
CPT/HCPCS: 36415; 84153

== ENCOUNTER 2021-06-30 11:14 | Emergency (ER) | payer OTHER, MEDICARE, SELFPAY ==
[2021-06-30 11:19] VITALS: BP 144/82; PULSE 100; RESP 16; TEMP 36.9; O2SAT 97; BMI 29.7
[2021-06-30] MEDS: TET,DIPH,PERTUSS(ACELL),VAC/PF 0.5 ML SYRINGE IM (11:47)
--- NOTE | 2021-06-30 12:22 | ED.SKABFB ---
HPI - Skin/Abscess/Foreign Bdy <Reyn Penobscot, DENTAL FINANCIAL COORDINATOR-BC - Last Filed: 06/30/21 15:52> General Chief complaint: Skin/Abscess/Foreign Body Stated complaint: Wants Tetanus Shot, Rt Hand Lac Time Seen by Provider: 06/30/21 12:04 Source: patient Mode of arrival: Ambulatory Limitations: no limitations History of Present Illness HPI narrative: The patient is a 71-year-old male former smoker with history of type 2 diabetes and hypertension who presents with a chief complaint of a dog bite to his right hand. He is right-hand dominant. He does not know when his last tetanus was. The dog that bit him was his own dog, who is fully vaccinated. He states he has been been by this dog multiple times but this is the worst. His dog is suffering from multiple medical conditions including pancreatitis and diabetes, but skipped protective over food as the dog did today. He states that he has full range of motion. The injury occurred about 11:00 a.m.. He washed it with water, but nothing else. Related Data Home Medications Medication Instructions Recorded Confirmed amlodipine 10 mg tablet 10 mg PO DAILY 05/17/18 07/18/20 atorvastatin 40 mg tablet 40 mg PO DAILY 05/17/18 07/18/20 gabapentin 300 mg capsule 300 mg PO DAILY 05/17/18 07/18/20 hydrocodone 10 mg-acetaminophen 1 tab PO Q4-6H PRN 05/17/18 07/18/20 325 mg tablet ([place]) isosorbide mononitrate 30 mg 30 mg PO DAILY 05/17/18 07/18/20 tablet,extended release 24 hr metformin 500 mg tablet 500 mg PO BID 05/17/18 07/18/20 metoprolol tartrate 25 mg tablet 25 mg PO BID 05/17/18 07/18/20 omeprazole 20 mg tablet,delayed 20 mg PO DAILY 05/17/18 07/18/20 release paroxetine HCl 10 mg tablet (Paxil) 10 mg PO DAILY 05/17/18 07/18/20 tamsulosin 0.4 mg capsule 0.4 mg PO DAILY 05/17/18 07/18/20 Previous Rx's Medication Instructions Recorded mupirocin 2 % topical ointment 1 applic TOPICAL BID #30 g 07/18/20 amoxicillin 875 mg-potassium 1 tab PO BID #10 tab 06/30/21 clavulanate 125 mg tablet (Augmentin) Allergies Allergy/AdvReac Type Severity Reaction Status Date / Time No Known Drug Allergies Allergy Verified 07/18/20 14:46 Review of Systems <LINDSEY Clark - Last Filed: 06/30/21 15:52> Review of Systems Narrative: GENERAL: Denies chills, fatigue, malaise, fever, sweats. HEENT: Denies sinus pain, ear pain, sore throat, difficulty swallowing, dizziness. RESPIRATORY: Denies dyspnea, cough, wheezing, hemoptysis, sputum. CARDIOVASCULAR: Denies chest pain, palpitations, orthopnea, edema, GASTROINTESTINAL: Denies nausea, vomiting, abdominal pain, diarrhea, constipation, melena. : Denies dysuria, frequency, incontinence, hematuria, urinary retention. MUSCULOSKELETAL: See HPI SKIN: See HPI NEUROLOGIC: Denies weakness, headache, numbness, change in speech, confusion, seizures, incoordination. PSYCHIATRIC: No concerning psychosocial issues. 12 point review of systems is negative except for those stated above Patient History <LINDSEY Clark - Last Filed: 06/30/21 15:52> Medical History (Updated 06/30/21 @ 12:27 by LINDSEY Clark) Chronic back pain Elevated cholesterol Essential hypertension with goal blood pressure less than 130/85 Surgical History (Updated 03/20/18 @ 09:18 by Sree Hernandez MD) H/O partial nephrectomy H/O radical prostatectomy Social History household members: spouse Smoking Status: Former smoker Smoking Status: Former smoker alcohol intake frequency: holidays/special occasions only Exam <LINDSEY Clark - Last Filed: 06/30/21 15:52> Narrative Exam Narrative: GENERAL: This is a well-nourished, well-developed patient, in no acute distress HEAD: Atraumatic. Normocephalic. No temporal or scalp tenderness. EYES: Pupils equal round and reactive. Extraocular motions intact. No scleral icterus. No injection or drainage. ENT: Nose without bleeding, purulent drainage or septal hematoma. Wearing a mask. Airway patent. NECK: Trachea no cough. No increased respiratory effort. No accessory muscle use. EXTREMITIES: Right hand with multiple functional wounds noted medial to 2nd digit at base of digit, for on dorsum of hand, 3 on palmar side. No extending redness, slight swelling and ecchymosis noted. Able to fully flex and extend all fingers against resistance. Capillary refill less than 2 seconds all fingers right hand. No active bleeding noted. BACK: Nontender without deformity or crepitance. No flank tenderness. NEURO: AOx3. SKIN: See extremity exam Initial Vital Signs Initial Vital Signs: Vital Signs Temperature 98.4 F 06/30/21 11:19 Pulse Rate 100 H 06/30/21 11:19 Respiratory Rate 16 06/30/21 11:19 Blood Pressure 144/82 H 06/30/21 11:19 Pulse Oximetry 97 06/30/21 11:19 <Pattie Muñiz DO - Last Filed: 07/01/21 07:46> Initial Vital Signs Initial Vital Signs: Vital Signs Temperature 98.4 F 06/30/21 11:19 Pulse Rate 100 H 06/30/21 11:19 Respiratory Rate 16 06/30/21 11:19 Blood Pressure 144/82 H 06/30/21 11:19 Pulse Oximetry 97 06/30/21 11:19 Course <LINDSEY Clark - Last Filed: 06/30/21 15:52> Orders Ordered: Discontinued Medications Diphtheria/Tetanus/Acell Pertussis (Tet,Diph,Pertuss(Acell),Vac/Pf 0.5 Ml Syringe) 0.5 ml IM .ONCE ONE Stop: 06/30/21 11:39 Last Admin: 06/30/21 11:47 Dose: 0.5 ml Documented by: POLINA Vital Signs Vital signs: Vital Signs - 8 hr 06/30/21 11:19 Temperature 98.4 F Pulse Rate 100 H Respiratory Rate 16 Blood Pressure 144/82 H Pulse Oximetry 97 <Pattie Muñiz DO - Last Filed: 07/01/21 07:46> Orders Ordered: Discontinued Medications Diphtheria/Tetanus/Acell Pertussis (Tet,Diph,Pertuss(Acell),Vac/Pf 0.5 Ml Syringe) 0.5 ml IM .ONCE ONE Stop: 06/30/21 11:39 Last Admin: 06/30/21 11:47 Dose: 0.5 ml Documented by: POLINA Vital Signs Vital signs: Vital Signs - 8 hr 06/30/21 11:19 Temperature 98.4 F Pulse Rate 100 H Respiratory Rate 16 Blood Pressure 144/82 H Pulse Oximetry 97 MDM - Skin/Abscess/Foreign Bdy <Reny EscotoСЕРГЕЙ cuevas- - Last Filed: 06/30/21 15:52> [facility] Narrative Medical decision making narrative: The patient is a 71-year-old male with type 2 diabetes who presents with a chief complaint of a dog bite. The dog is known and vaccinated at this time, so rabies is not of concern. The patient's tetanus was updated as he did not know when his previous tetanus was. Patient declines x-ray. Given that he has multiple puncture wounds to his dominant hand as well as a history of type 2 diabetes, will place patient on Augmentin. Encouraged to follow up with primary care provider, monitoring for signs of worsening such as decreased range of motion, extending redness etcetera. Patient has no questions or concerns upon discharge states understanding return precautions as well as follow-up care. Discharge Plan Departure Patient Disposition: Home Clinical Impression: Dog bite of hand Instructions: Animal Bites, DI for Animal Bites Activity Restrictions/Additional Instructions: Thank you for trusting us with your care today. As discussed, [facility] Please take this with probiotic or yogurt to help prevent antibiotic related infection. Please follow-up with primary care provider as needed and able. Please monitor for any signs of worsening infection such as extending redness, purulent drainage, decreased range of motion. Please come back to the emergency department for any acute concerns. Prescriptions: New amoxicillin-pot clavulanate [Augmentin] 875-125 mg tablet 1 tab PO BID Qty: 10 0RF No Action amlodipine 10 mg tablet 10 mg PO DAILY 0RF atorvastatin 40 mg tablet 40 mg PO DAILY 0RF gabapentin 300 mg capsule 300 mg PO DAILY 0RF hydrocodone-acetaminophen [[place]] 10-325 mg tablet 1 tab PO Q4-6H PRN0RF isosorbide mononitrate 30 mg tablet extended release 24 hr 30 mg PO DAILY 0RF metformin 500 mg tablet 500 mg PO BID 0RF metoprolol tartrate 25 mg tablet 25 mg PO BID 0RF omeprazole 20 mg tablet,delayed release (DR/EC) 20 mg PO DAILY 0RF paroxetine HCl [Paxil] 10 mg tablet 10 mg PO DAILY 0RF tamsulosin 0.4 mg capsule 0.4 mg PO DAILY 0RF mupirocin 2 % ointment 1 applic topical BID Qty: 30 0RF Referrals: Óscar Stevenson MD [Primary Care Provider] - <Pattie Muñiz DO - Last Filed: 07/01/21 07:46> [facility]ign ED Attending April Attestation: I was immediately available in the department for consultation. Documentation has been reviewed. I agree with assessment and plan.
== END 2021-06-30 12:40 | disposition home or self-care (01) ==
PROVIDERS: Emergency Provider Nurse Practitioner Family; PCP Family Medicine Sports Medicine
DX: S61.451A Open bite of right hand, initial encounter (principal); W54.0XXA Bitten by dog, initial encounter; Z23 Encounter for immunization
CPT/HCPCS: 90471; 99283; 90715

== ENCOUNTER → 2021-08-09 08:20 | Outpatient (CLI) | payer OTHER, MEDICARE, SELFPAY ==
[2021-08-09 09:50] LABS: Prostate Specific Antigen 0.464 ng/mL (0.10-4.00)
== END ==
PROVIDERS: PCP Family Medicine Sports Medicine; Referring Provider Radiology Radiation Oncology; Visit Provider Radiology Radiation Oncology
DX: C61 Malignant neoplasm of prostate (principal)
CPT/HCPCS: 36415; 84153

== ENCOUNTER → 2021-09-03 07:03 | Outpatient (CLI) | payer OTHER, MEDICARE, SELFPAY ==
[2021-09-03 09:30] LABS: Prostate Specific Antigen 0.425 ng/mL (0.10-4.00)
== END ==
PROVIDERS: PCP Family Medicine Sports Medicine; Referring Provider Radiology Radiation Oncology; Visit Provider Radiology Radiation Oncology
DX: C61 Malignant neoplasm of prostate (principal)
CPT/HCPCS: 36415; 84153

== ENCOUNTER → 2021-09-30 07:00 | Outpatient (CLI) | payer OTHER, MEDICARE, SELFPAY ==
[2021-09-30 09:20] LABS: BUN Creatinine Ratio 15.2 (6-22); Blood Urea Nitrogen 15 mg/dL (9-20); Calcium 9.1 mg/dL (8.4-10.2); Carbon Dioxide 27 mmol/L (22-32); Chloride 100 mmol/L (98-107); Estimated Glomerular Filt Rate > 60 mL/min (>60); Glucose 310 mg/dL (80-110); HEMOLYSIS < 15 (0-50); Sodium 137 mmol/L (137-145)
== END ==
PROVIDERS: PCP Family Medicine Sports Medicine; Referring Provider Internal Medicine Cardiovascular Disease; Visit Provider Internal Medicine Cardiovascular Disease
DX: I10 Essential (primary) hypertension (principal)
CPT/HCPCS: 36415; 80048

== ENCOUNTER → 2021-12-07 08:15 | Outpatient (CLI) | payer OTHER, MEDICARE, SELFPAY ==
[2021-12-07 09:00] LABS: Add Manual Diff / Slide Review NO; Basophils Absolute Auto 0 /uL (0-100); Basophils Percent Auto 0.5 % (0-2); Eosinophils Absolute Auto 100 /uL (0-450); Hematocrit 43.3 % (41-53); Hemoglobin 15.1 g/dL (13.5-17.5); Lymphocytes Absolute Auto 1600 /uL (1100-4500); Lymphocytes Percent Auto 30.5 % (25-40); Mean Corpuscular HGB Conc 34.8 % (30-36); Mean Corpuscular Hemoglobin 31.4 PG (26-34); Mean Corpuscular Volume 90.3 fL (80-100); Monocytes Absolute Auto 400 /uL (0-900); Monocytes Percent Auto 7.4 % (3-14); Neutrophils Absolute Auto 3200 /uL (1500-7000); Neutrophils Percent Auto 59.6 % (50-75); Platelet Count 150 X10^3/uL (150-400); Red Cell Distribution Width 13.5 % (11.6-14.8); White Blood Cell Count 5.3 X10^3/uL (4.5-11.0)
[2021-12-07 09:10] LABS: BUN Creatinine Ratio 18.3 (6-22); Blood Urea Nitrogen 17 mg/dL (9-20); Calcium 8.8 mg/dL (8.4-10.2); Carbon Dioxide 26 mmol/L (22-32); Chloride 104 mmol/L (98-107); Estimated Glomerular Filt Rate > 60 mL/min (>60); Glucose 321 mg/dL (80-110); HEMOLYSIS < 15 (0-50); Potassium 4.2 mmol/L (3.4-5.1); Sodium 137 mmol/L (137-145)
== END ==
PROVIDERS: PCP Family Medicine Sports Medicine; Referring Provider Internal Medicine Cardiovascular Disease; Visit Provider Internal Medicine Cardiovascular Disease
DX: I47.1 Supraventricular tachycardia (principal); I10 Essential (primary) hypertension
CPT/HCPCS: 36415; 80048; 85025

== ENCOUNTER → 2021-12-27 15:52 | Outpatient (CLI) | payer OTHER, MEDICARE, SELFPAY ==
[2021-12-27 16:55] LABS: Blood Urea Nitrogen 22 mg/dL (9-20)
[2021-12-27 17:28] LABS: Prostate Specific Antigen 0.552 ng/mL (0.10-4.00)
== END ==
PROVIDERS: PCP Family Medicine Sports Medicine; Referring Provider Radiology Radiation Oncology; Visit Provider Radiology Radiation Oncology
DX: C61 Malignant neoplasm of prostate (principal); R31.0 Gross hematuria
CPT/HCPCS: 36415; 84153; 84520

== ENCOUNTER → 2021-12-30 12:33 | Outpatient (CLI) | payer OTHER, MEDICARE, SELFPAY ==
--- NOTE | 2021-12-30 | DI.CT.S_ITS ---
PROCEDURE: CT CHEST WO CON INDICATIONS: gross hematuria TECHNIQUE: Noncontrast 5 mm thick sections acquired from the pulmonary apices to the posterior costophrenic angles. 1 mm lung window, 5 mm thick coronal and sagittal and 7 mm axial MIP reformats were then acquired. For radiation dose reduction, the following was used: automated exposure control, adjustment of mA and/or kV according to patient size. COMPARISON: [facility], CT, IVP (ABD & PEL WWO CONTRAST), 11/16/2015, 9:48. [facility], CT, CT IVP A/P W/WO, 12/30/2021, 13:37. FINDINGS: Image quality: Excellent. Lungs and pleura: No acute air space opacities. Lower lobe juxta fissural pulmonary nodule measuring 0.5 cm, (3/188), similar to 2016. A few calcified granuloma. No pleural effusions or pneumothorax. Central and peripheral airways are patent and normal in caliber. Mediastinum: Heart size is normal. [id number]-rnqjdrxg coronary artery calcifications. Trace pericardial effusion. No mediastinal adenopathy by size criteria. Small prevascular node measuring 0.8 cm, (2/23). Thoracic aorta and central pulmonary arteries are normal in size. Esophagus is normal in caliber. No hiatal hernia. Bones and chest wall: A few sclerotic foci in the left anterior lateral 5th rib. No vertebral body compression fractures. No axillary or supraclavicular adenopathy by size criteria. Suspect small left thyroid nodule. Abdomen: Visualized upper abdominal solid organs and bowel loops appear normal in the absence of contrast. Hypodensity in the left lobe of the liver measuring 1.2 cm, (2/56), remotely 1 cm in 2016. This most likely represents a benign cyst. No adrenal nodule. IMPRESSION: 1. No significant pulmonary nodules identified. No mass. No enlarged lymph nodes. 2. Small sclerotic foci in the left 5th rib. The have a benign appearance. Favor bone islands over metastatic disease. Dictated by: Juan Luis Munoz M.D. on 12/30/2021 at 21:00 Approved by: Juan Luis Munoz M.D. on 12/30/2021 at 21:14
--- NOTE | 2021-12-30 12:37 | DI.CT.S_ITS ---
PROCEDURE: CT IVP A/P W/WO INDICATIONS: Gross hematuria TECHNIQUE: Optional 5 mm thick noncontrast images acquired from the diaphragm to the symphysis pubis. After the administration of intravenous contrast, 5 mm thick images acquired from the diaphragm to the symphysis pubis after a 10-minute delay. 2 mm thick coronal and sagittal reformats were then performed of the kidneys and ureters. For radiation dose reduction, the following was used: automated exposure control, adjustment of mA and/or kV according to patient size. COMPARISON: [facility], CT, ABDOMEN/PELVIS WITH CONTRAST, 08/28/2017, 10:04. FINDINGS: Lower thorax: The lung bases are clear. Heart size normal. No hiatal hernia. Liver: Normal in size and attenuation. No contour deformity present. Left hepatic 1.3 cm hypodensity consistent with cyst, stable from the prior. Biliary system: No calcified cholelithiasis or pericholecystic inflammation. No intra or extrahepatic bile duct dilatation. Pancreas: Unremarkable without mass or inflammation evident. Spleen: Normal in size and density. Adrenals: Normal morphology and density. Reproductive system: Unremarkable as visualized. Urinary system: Right renal scarring noted. Enhancing right renal parenchyma is similar prior. Perirenal fat necrosis is again noted, however, there is now a soft tissue rind in the inferior portion of the prior fat necrosis measuring 1.3 cm in thickness and greater than 5 cm in length. Both kidneys enhance and excrete contrast appropriately. Unremarkable urinary bladder. Gastrointestinal system: The bowel is unremarkable without evidence of bowel obstruction or inflammation. The stomach appears unremarkable. Appendix: No findings to suggest acute appendicitis. Peritoneal spaces: No mesenteric or retroperitoneal adenopathy. No free air. No free fluid. Vasculature: Infrarenal abdominal aortic aneurysm measures 3.6 by 3.5 cm Abdominal wall: Bilateral inguinal hernia(s) contain fat without bowel involvement. Musculoskeletal: Normal bone mineralization. No acute fractures. IMPRESSION: 1. Perirenal fat necrosis with peripheral calcification now shows the new soft tissue rind measuring 1.3 x 5 cm, suspicious for neoplasm. Consider follow-up MRI with contrast. 2. Stable right renal scarring. Nonobstructing bilateral renal calculi. No obstructive uropathy. Approved by: Jaylen Cervantes M.D. on 12/30/2021 at 18:20
== END ==
PROVIDERS: PCP Family Medicine Sports Medicine; Referring Provider Urology; Visit Provider Urology
DX: N28.89 Other specified disorders of kidney and ureter (principal); R31.0 Gross hematuria; N20.0 Calculus of kidney; I71.4 Abdominal aortic aneurysm, without rupture; K40.20 Bilateral inguinal hernia, without obstruction or gangrene, not specified as recurrent; I25.10 Atherosclerotic heart disease of native coronary artery without angina pectoris
CPT/HCPCS: 71250; 74178; Q9967

== ENCOUNTER → 2022-03-04 13:25 | Outpatient (CLI) | payer OTHER, MEDICARE, SELFPAY ==
[2022-03-04 14:21] LABS: Hemoglobin A1C% w Est Avg Glu 9.7 % (4.0-6.0)
[2022-03-04 14:29] LABS: BUN Creatinine Ratio 18.6 (6-22); Blood Urea Nitrogen 18 mg/dL (9-20); Calcium 9.6 mg/dL (8.4-10.2); Carbon Dioxide 24 mmol/L (22-32); Chloride 104 mmol/L (98-107); Estimated Glomerular Filt Rate > 60 mL/min (>60); Glucose 268 mg/dL (80-110); HEMOLYSIS 70 (0-50); Potassium 4.7 mmol/L (3.4-5.1); Sodium 139 mmol/L (137-145)
[2022-03-04 15:29] LABS: Creatinine Urine Random 121.4 mg/dL
[2022-03-04 15:36] LABS: Microalbumi Creatinin Ratio Ur 40.3 ug/mg CR (<30); Microalbumin Urine Random 4.9 mg/dL (0-1.6)
== END ==
PROVIDERS: PCP Family Medicine Sports Medicine; Referring Provider Internal Medicine Cardiovascular Disease; Visit Provider Internal Medicine Cardiovascular Disease
DX: E11.65 Type 2 diabetes mellitus with hyperglycemia (principal); I10 Essential (primary) hypertension
CPT/HCPCS: 36415; 80048; 82043; 82570; 83036

== ENCOUNTER → 2022-05-05 16:50 | Outpatient (CLI) | payer OTHER, MEDICARE, SELFPAY ==
[2022-05-05 19:09] LABS: Prostate Specific Antigen 0.988 ng/mL (0.10-4.00)
== END ==
PROVIDERS: PCP Family Medicine Sports Medicine; Referring Provider Radiology Radiation Oncology; Visit Provider Radiology Radiation Oncology
DX: C61 Malignant neoplasm of prostate (principal)
CPT/HCPCS: 36415; 84153

== ENCOUNTER → 2022-07-06 06:58 | Outpatient (CLI) | payer OTHER, MEDICARE, SELFPAY ==
[2022-07-06 07:58] LABS: Hemoglobin A1C% w Est Avg Glu 6.6 % (4.0-6.0)
[2022-07-06 08:01] LABS: Alanine Aminotransferase 25 IU/L (<50); Albumin Globulin Ratio 1.7 (1.0-2.8); Alkaline Phosphatase 40 U/L (38-126); Aspartate Aminotransferase 20 IU/L (17-59); BUN Creatinine Ratio 17.9 (6-22); Bilirubin Total 0.6 mg/dL (0.2-1.3); Blood Urea Nitrogen 19 mg/dL (9-20); Calcium 8.8 mg/dL (8.4-10.2); Carbon Dioxide 27 mmol/L (22-32); Chloride 106 mmol/L (98-107); Cholesterol 121 mg/dL (140-199); Estimated Glomerular Filt Rate > 60 mL/min (>60); Globulin 2.4 g/dL (1.7-4.1); Glucose 105 mg/dL (80-110); HDL Cholesterol 25 mg/dL (40-60); HEMOLYSIS < 15 (0-50); LDL Cholesterol Calculated 65 mg/dL (<100); Sodium 141 mmol/L (137-145); Total Protein 6.4 g/dL (6.3-8.2); Triglycerides 153 mg/dL (35-150)
[2022-07-06 08:21] LABS: Creatinine Urine Random 111.2 mg/dL
[2022-07-06 08:25] LABS: Microalbumi Creatinin Ratio Ur 5.3 ug/mg CR (<30); Microalbumin Urine Random 0.6 mg/dL (0-1.6)
== END ==
PROVIDERS: PCP Family Medicine Sports Medicine; Referring Provider Internal Medicine Endocrinology, Diabetes & Metabolism; Visit Provider Internal Medicine Endocrinology, Diabetes & Metabolism
DX: E11.65 Type 2 diabetes mellitus with hyperglycemia (principal)
CPT/HCPCS: 36415; 80053; 80061; 82043; 82570; 83036

== ENCOUNTER → 2022-10-10 09:49 | Outpatient (CLI) | payer OTHER, MEDICARE, SELFPAY ==
--- NOTE | 2022-10-10 | DI.NM.S_ITS ---
PROCEDURE: NM MERCEDES PERF SPECT REST & STR Rest and exercise myocardial perfusion SPECT with gated imaging and ejection fraction RADIOPHARMACEUTICAL: 12.6 mCi Tc-99m sestamibi IV at rest and 25.8 mCi Tc-99m sestamibi IV at peak exercise. A 1-aas-xkjozsfh was performed. INDICATIONS: Chest pain, unspecified TECHNIQUE: Radiopharmaceutical was injected at peak stress test, and also at rest. SPECT images were obtained. SPECT myocardial perfusion images were displayed in short axis, horizontal long axis, and vertical long axis views. Gated images were reviewed using HowAbout[employer] software. COMPARISON: None. CARDIAC STRESS: A standard Rodriguez treadmill exercise tolerance test was performed by the patient under the supervision of an attending staff. The patient exercised for 7 minutes and 1 second; 10.1 METS; functional aerobic impairment (CHAZ) is negative to %. Hemodynamic data: There is normal blood pressure and heart rate response to exercise stress. Patient achieved 113% of maximum predicted heart rate at peak exercise. Maximum blood pressure 176/82. Symptoms: Patient denied chest pain during exercise. EKG: No diagnostic EKG changes of ischemia; rare PVCs. FINDINGS: Raw data: There is good myocardial labeling by radiotracer. No significant motion artifacts. Xpdi-lx-kafub ratio is 0.23 (normal is less than 0.38 for sestamibi tracer, and less than 0.50 for thallium tracer). Left ventricle function: Gated images demonstrate normal left ventricle wall thickening. No segmental wall motion abnormality. No transient ischemic dilation; TID is 0.96 (normal less than 1.3). The left ventricle resting end-diastolic volume is 101 mL. Left ventricle stress ejection fraction is 69%; normal values are above 45%. Myocardial perfusion: There is a medium size, mild intensity fixed inferior wall defect that resolves with prone imaging. No reversible perfusion defects. IMPRESSION: Low risk study without reversible perfusion defects. The medium size, mild intensity fixed inferior wall defect completely resolves with prone imaging and is most consistent with attenuation artifact. Normal LV size and function. No evidence of exercise-induced ischemia on ECG. Normal hemodynamic response. Fair exercise capacity. Dictated by: Suzie Draper D.O. on 10/10/2022 at 17:28 Approved by: Suzie Draper D.O. on 10/10/2022 at 17:33
--- NOTE | 2022-10-10 | DI.ECHO.S_ITS ---
[facility] +---------+ : : [address] [place] : : : : [id number] : : : : Phone: [phone]+ Echocardiogram Report + + :Name: EVELYN CERVANTES Study Date: 10/10/2022 Height: 70 in : :[facility] ReadingLocation: Weight: 205 lb : : Gender: Male BSA: 2.1 m2 : :: 1950 Age: 72 yrs BP: 151/89 mmHg: :Reason For Study: Chest Pain : :Ordering Physician: Bonny, : :Suzie Performed By: Kinza Quevedo : :Referring: SUZIE DRAPER E : + + Interpretation Summary The ejection fraction is estimated to be 60-65%. Diastolic parameters suggest probable normal left ventricular diastolic function and normal filling pressures. The right ventricle is normal in size and function. There is trace aortic regurgitation. Pulmonary artery pressures cannot be estimated because of the lack of a measurable TR jet velocity. Compared to the prior study dated 03/02/2021, no significant change. Procedure: A two-dimensional transthoracic echocardiogram with color flow and Doppler was performed. The study quality was technically adequate. Comparison is made with the echocardiogram of 03/02/2021. The patient was in normal sinus rhythm during the exam. The patient had occasional PVCs during the exam. Left Ventricle: The left ventricle is normal in size. The ejection fraction is estimated to be 60-65%. Diastolic parameters suggest probable normal left ventricular diastolic function and normal filling pressures. Right Ventricle: The right ventricle is normal in size and function. Atria: The left atrial size is normal. Right atrial size is normal. There is no Doppler evidence for an interatrial shunt. Mitral Valve: The mitral valve is normal. There is no mitral valve stenosis. There is trace mitral regurgitation. Aortic Valve: The aortic valve is trileaflet. The aortic valve opens well. There is no aortic valve stenosis. There is trace aortic regurgitation. Tricuspid Valve: The tricuspid valve is normal. There is no tricuspid stenosis. There is trace tricuspid regurgitation. Pulmonary artery pressures cannot be estimated because of the lack of a measurable TR jet velocity. Pulmonic Valve: The pulmonic valve leaflets are thin and pliable; valve motion is normal. There is no pulmonic valvular stenosis. There is trace pulmonic regurgitation. Great Vessels: The aortic root is normal size. The ascending aorta is at the upper limits of normal in size. The pulmonary artery is normal size. The IVC is of normal diameter and collapses greater than 50% with a sniff. This suggests a low right atrial pressure of 3 mm Hg. Pericardium/ Pleura There is no pericardial effusion. There is no pleural effusion. MMode/2D Measurements & Calculations LVIDd: 4.6 cm LVOT diam: 2.0 cm LVIDs: 3.1 cm Ao root diam: 3.8 cm FS: 32.6 % asc Aorta Diam: 3.7 cm EPSS: 0.70 cm IVSd: 1.4 cm LVPWd: 1.1 cm LV [place]. diameter/BSA (cm/m^2): 2.2 LV sys. diameter/BSA (cm/m^2): 1.5 LA A2 area: 14.9 cm2 RA long axis: 5.2 cm LA A4 area: 13.6 cm2 RA area: 12.6 cm2 LA length (vol): 4.9 cm RA vol: 26.1 ml LA vol: 35.0 ml RA : 12.4 ml/m2 LA vol index: 16.6 ml/m2 RVD1 (basal): 4.1 cm LVLs ap4: 6.0 cm LVLd ap2: 6.7 cm TAPSE_phl: 1.3 cm LVLs ap2: 5.5 cm Doppler Measurements & Calculations Ao V2 max: 97.2 cm/sec LVOT Max Hero: 71.9 cm/sec Ao V2 mean: 71.5 cm/sec LV V1 max P.1 mmHg Ao max P.0 mmHg LV V1 VTI: 14.3 cm Ao mean P.0 mmHg MAGALIE(I,D): 2.3 cm2 Ao V2 VTI: 19.7 cm MAGALIE(V,D): 2.3 cm2 sev ratio: 0.73 MAGALIE indexed to BSA (cm^2/m^2): 1.1 MV E max hero: 55.6 cm/sec TR max hero: 204.3 cm/sec MV A max hero: 82.9 cm/sec TR max P.7 mmHg MV E/A: 0.67 PA V2 max: 81.4 cm/sec Med Peak E' Hero: 5.6 cm/sec PA V2 mean: 55.6 cm/sec E/E' med: 9.9 PA mean P.0 mmHg Lat Peak E' Hero: 4.7 cm/sec PA pr(Accel): 27.7 mmHg E/E' lat: 11.7 E/e' average: 10.8 MV dec time: 0.23 sec SV(LVOT): 44.9 ml AV VR_phl: 0.74 MAGALIE(VTI)/BSA_phl: 1.1 Reading Physician:06:13 PM
== END ==
PROVIDERS: PCP Family Medicine Sports Medicine; Referring Provider Internal Medicine Cardiovascular Disease; Visit Provider Internal Medicine Cardiovascular Disease
DX: R07.9 Chest pain, unspecified (principal)
CPT/HCPCS: 78452; 93017; 93306; A9502